=== PATIENT | male | born 1950 | race African-American/Black ===

== ENCOUNTER 2019-07-31 05:18 | Day surgery (SDC) | payer OTHER ==
[~2019-07-31] VITALS: Ht 188 cm; Wt 105.2 kg
[~2019-07-31 05:18] MED LIST: LISI10TA5 PO
[2019-07-31] MEDS ORDERED: FENTANYL CITRATE/PF 50MCG/ML 2ML VIAL ONE (06:24)
[2019-07-31] MEDS ORDERED: SUCCINYLCHOLINE CHLORIDE 200MG/10ML IV ONE (06:24)
[2019-07-31] MEDS ORDERED: PROPOFOL 200MG/20ML VIAL IV ONE (06:24)
[2019-07-31] MEDS ORDERED: CEFAZOLIN SODIUM 1000MG/VIAL ONE (06:24)
[2019-07-31] MEDS ORDERED: MIDAZOLAM HCL 2 MG/2 ML VIAL ONE (06:24)
[2019-07-31] MEDS ORDERED: SODIUM CHLORIDE 0.9% 10ML VIAL ONE ×2 (06:24→06:36)
[2019-07-31] MEDS ORDERED: LIDOCAINE HCL/PF 1% 10 MG/ML 5ML VIAL ONE (06:24)
[2019-07-31] MEDS ORDERED: BUPIVACAINE HCL 0.5% (5MG/ML) 50ML ONE (06:28)
[2019-07-31] MEDS ORDERED: SKIN ADHESIVE 0.7 GM EA TOP ONE (06:28)
[2019-07-31] MEDS ORDERED: FLUMAZENIL 0.1 MG/ML 5ML VIAL IV ONE (06:32)
[2019-07-31] MEDS ORDERED: ROCURONIUM BROMIDE 10MG/ML VIAL 5ML IV ONE (06:33)
[2019-07-31] MEDS ORDERED: EPHEDRINE SULFATE 50MG/ML VIAL ONE (06:36)
[2019-07-31] MEDS ORDERED: DEXAMETHASONE 4MG/ML 1ML VIAL ONE (07:15)
[2019-07-31] MEDS ORDERED: ONDANSETRON HCL 4MG/2ML INJ ONE (07:16)
[2019-07-31] MEDS: LACTATED RINGERS 1,000 ML IV SCH ×2 (07:45→07:52)
[2019-07-31] MEDS ORDERED: GLYCOPYRROLATE 0.2 MG/ML 2ML VIAL ONE ×2 (07:47→08:59)
[2019-07-31] MEDS ORDERED: DULO30CA52 PO (07:52)
[2019-07-31] MEDS ORDERED: OMEP40CA34 PO (07:52)
[2019-07-31] MEDS ORDERED: HYOS-16 SL (07:52)
[2019-07-31] MEDS ORDERED: AMLO10TA80 PO (07:52)
[2019-07-31] MEDS ORDERED: GABA-529 PO (07:52)
[2019-07-31] MEDS ORDERED: NEOSTIGMINE METHYLSULFATE 1MG/ML 10 ML VIAL ONE (08:59)
[2019-07-31] MEDS ORDERED: ESMOLOL HCL 10MG/ML 10ML VIAL IV ONE (09:05)
[2019-07-31] MEDS ORDERED: HYDRALAZINE 20MG/ML VIAL ONE (09:12)
[2019-07-31] MEDS ORDERED: LABETALOL 5MG/ML SYR 20 MG/4 ML SYRINGE IV NR (09:30)
[2019-07-31] MEDS ORDERED: HYDROMORPHONE HCL/PF 2MG/ML (OR) ONE (09:30)
[2019-07-31] MEDS: HYDROMORPHONE HCL/PF 2MG/ML CPJ IV PRN ×3 (10:00→10:32)
[2019-07-31 10:32] VITALS: BP 131/74
== END 2019-07-31 11:30 | disposition home or self-care (01) ==
LOC: OR 05:18
PROVIDERS: ATTEND Surgery
DX: K40.90 Unilateral inguinal hernia, without obstruction or gangrene, not specified as recurrent (principal); I10 Essential (primary) hypertension; K21.9 Gastro-esophageal reflux disease without esophagitis; F32.9 Major depressive disorder, single episode, unspecified; Z98.890 Other specified postprocedural states; Z79.899 Other long term (current) drug therapy
CPT/HCPCS: 49650; C1781; J0330; J0360; J0690; J1100; J1170; J2250; J2405; J2704; J2710; J3010; J3490